=== PATIENT | male | born 1960 | race Caucasian/White ===

== ENCOUNTER 2018-09-13 12:50 | Emergency (ER) | payer OTHER ==
[2018-09-13 13:02] VITALS: BP 128/82; PULSE 81; RESP 18; TEMP 98.8; O2SAT 95
[2018-09-13] MEDS ORDERED: Sodium Chloride 0.9% 1,000 ML IV ONE (13:14)
[2018-09-13 13:46] LABS: BASO # 0.1 K/uL (0.0-0.2); BASO % 0.7 % (0.0-2.0); EOS # 0.3 K/uL (0.0-0.7); EOS % 2.6 % (0.0-4.0); HEMOGLOBIN 16.2 g/dL (12.0-18.0); LYMPH # 2.2 K/uL (1.0-4.3); LYMPH % 19.8 % (20.0-40.0); MEAN CELL VOLUME 82.5 fL (80.0-94.0); MEAN CORPUSCULAR HEMOGLOBIN 28.4 pg (27.0-31.0); MEAN CORPUSCULAR HGB CONC 34.4 g/dL (33.0-37.0); MEAN PLATELET VOLUME 7.2 fL (7.2-11.7); MONO % 9.2 % (0.0-10.0); NEUT # 7.6 K/uL (1.8-7.0); NEUT % 67.7 % (50.0-75.0); NRBC % 0.1 % (0.0-2.0); RBC 5.7 Mil/uL (4.40-5.90); RED CELL DISTRIBUTION WIDTH 12.9 % (11.5-14.5); WHITE BLOOD COUNT 11.2 K/uL (4.8-10.8)
[2018-09-13 13:58] LABS: URINE BILIRUBIN NEGATIVE (NEGATIVE); URINE BLOOD NEGATIVE (NEGATIVE); URINE CLARITY Clear (Clear); URINE COLOR Yellow (YELLOW); URINE GLUCOSE (UA) NORMAL (Normal); URINE LEUKOCYTE ESTERASE NEG Leu/uL (Negative); URINE PROTEIN NEGATIVE (NEGATIVE); URINE UROBILINOGEN NORMAL mg/dL (0.2-1.0)
[2018-09-13 14:01] LABS: ALB/GLOB RATIO 1.4 (1.0-2.1); ALBUMIN 4.3 g/dL (3.5-5.0); ALT/SGPT 30 U/L (21-72); AST/SGOT 19 U/L (17-59); BLOOD UREA NITROGEN 14 mg/dL (9-20); CALCIUM 10.1 mg/dl (8.6-10.4); GFR NON-AFRICAN AMERICAN > 60; LIPASE 109 U/L (23-300)
--- NOTE | 2018-09-13 14:11 | RAD ---
Abdomen four views HISTORY: Abdominal pain. Comparison: None available. FINDINGS: Mild venous congestion. Mild patchy increased markings at the left lung base. Tortuous aorta. Top normal heart size. Degenerative changes in the spine. Scoliotic curvature of the lumbar spine. Moderate fecal retention in the colon. No evidence of gross bowel obstruction. Impression: Moderate fecal retention in the colon. If pain persists, consider correlation with CT scan.
--- NOTE | 2018-09-13 14:26 | C.PDOC ---
History Of Present Illness 58 year old male presents to the ED complaining of periumbilical discomfort for 4 days. Denies any constipation, back pain, chest pain, fever, chills, nausea, vomiting, diarrhea, or any other associated complaints. States he has been taking unknown [place] remedies for 3 days with no relief. Son at bedside states the medication is like Tylenol. Denies any weight gain or loss. Time Seen by Provider: 09/13/18 13:07 Chief Complaint (Nursing): Abdominal Pain History Per: Patient History/Exam Limitations: no limitations Onset/Duration Of Symptoms: Days Current Symptoms Are (Timing): Still Present Past Medical History Reviewed: Historical Data, Nursing Documentation, Vital Signs Vital Signs: Last Vital Signs Temp 98.8 F 09/13/18 13:01 Pulse 81 09/13/18 13:01 Resp 18 09/13/18 13:01 BP 128/82 09/13/18 13:01 Pulse Ox 95 09/13/18 13:01 - Medical History PMH: No Chronic Diseases Surgical History: No Surg Hx Family History: States: No Known Family Hx - Social History Hx Alcohol Use: No Hx Substance Use: No Review Of Systems Except As Marked, All Systems Reviewed And Found Negative. Constitutional: Negative for: Fever, Chills, Weight loss Cardiovascular: Negative for: Chest Pain Respiratory: Negative for: Cough, Shortness of Breath Gastrointestinal: Positive for: Abdominal Pain (periumbilical discomfort). Negative for: Nausea, Vomiting, Diarrhea, Constipation Genitourinary: Negative for: Dysuria, Frequency, Hematuria Musculoskeletal: Negative for: Back Pain Physical Exam - Physical Exam Appears: Non-toxic, No Acute Distress, Other (Obese [place] male ) Skin: Warm, Dry, No Rash Head: Normacephalic Eye(s): bilateral: Normal Inspection Nose: Normal Oral Mucosa: Moist Neck: Supple Chest: Symmetrical Cardiovascular: Rhythm Regular Respiratory: Normal Breath Sounds, No Rales, No Rhonchi, No Wheezing Gastrointestinal/Abdominal: Bowel Sounds (Active, normal ), Soft, No Tenderness, Other (Dullness to percussion throughtout except tympanic to percussion in epigastric region. Negative Jeffries's, Negative Mcburney's, obese ) Neurological/Psych: Oriented x3, Normal Speech Gait: Steady ED Course And Treatment - Laboratory Results Result Diagrams: 09/13/18 13:41 09/13/18 13:41 Lab Results: Total Bilirubin 0.6 mg/dL (0.2-1.3) 09/13/18 13:41 AST 19 U/L (17-59) 09/13/18 13:41 ALT 30 U/L (21-72) 09/13/18 13:41 Alkaline Phosphatase 93 U/L (38-126) 09/13/18 13:41 Total Protein 7.4 g/dL (6.3-8.3) 09/13/18 13:41 Albumin 4.3 g/dL (3.5-5.0) 09/13/18 13:41 Globulin 3.1 gm/dL (2.2-3.9) 09/13/18 13:41 Albumin/Globulin Ratio 1.4 (1.0-2.1) 09/13/18 13:41 Lipase 109 U/L (23-300) 09/13/18 13:41 Urine Color Yellow (YELLOW) 09/13/18 13:41 Urine Clarity Clear (Clear) 09/13/18 13:41 Urine pH 6.0 (5.0-8.0) 09/13/18 13:41 Ur Specific [place] 1.012 (1.003-1.030) 09/13/18 13:41 Urine Protein Negative mg/dL (NEGATIVE) 09/13/18 13:41 Urine Glucose (UA) Normal mg/dL (Normal) 09/13/18 13:41 Urine Ketones Negative mg/dL (NEGATIVE) 09/13/18 13:41 Urine Blood Negative (NEGATIVE) 09/13/18 13:41 Urine Nitrate Negative (NEGATIVE) 09/13/18 13:41 Urine Bilirubin Negative (NEGATIVE) 09/13/18 13:41 Urine Urobilinogen Normal mg/dL (0.2-1.0) 09/13/18 13:41 Ur Leukocyte Esterase Neg Silas/uL (Negative) 09/13/18 13:41 Urine RBC (Auto) < 1 /hpf (0-3) 09/13/18 13:41 O2 Sat by Pulse Oximetry: 95 (RA) Pulse Ox Interpretation: Normal Medical Decision Making Medical Decision Making: Plan - Toradol 30mg IVP - Magnesium Citrate 300ml PO - IV fluids periumbilical pain without diarrhea for 4-5 days mild leukocytosis that is not L shifted, with Lymphocyte predominance suggestive of mesenteric adenitis Benign exam abd films +FOS improved with NSAIDS empiric NSAIDS and laxative and opt f/u PRN in 4-7 days Disposition Doctor Will See Patient In The: Office Counseled Patient/Family Regarding: Studies Performed, Diagnosis - Disposition Referrals: Prosper Trinidad MD [Staff Provider] - Disposition: HOME/ ROUTINE Disposition Time: 14:27 Condition: GOOD Additional Instructions: constipation: drink laxative now re-evaluate your abd discomfort after 2-3 bowel movements diet and exercise changes Mesenteric Adenitis: Advil/Motrin 400-600 mg every 6 hours as needed for belly discomfort AFTER the laxative therapy Outpatient f/u with Dr. Trinidad as needed in 4-7 days return to ED if symptoms significantly change or worsten. Instructions: Constipation, Adult (DC), Mesenteric Lymphadenitis (DC) Forms: [facility] (Belgian) - Clinical Impression Clinical Impression: Abdominal discomfort - Scribe Statement The provider has reviewed the documentation as recorded by the Aundreaibvictoria Gorman All medical record entries made by the Aundreaibvictoria were at my direction and personally dictated by me. I have reviewed the chart and agree that the record accurately reflects my personal performance of the history, physical exam, medical decision making, and the department course for this patient. I have also personally directed, reviewed, and agree with the discharge instructions and disposition.
[2018-09-13] MEDS ORDERED: Magnesium Citrate Oral SOL (300 ml) PO ONE (14:31)
[2018-09-13] MEDS ORDERED: Magnesium Citrate Oral SOL (300 ml) ONE (14:38)
== END 2018-09-13 14:52 | disposition home or self-care (01) ==
LOC: C.ER 12:50
DX: R10.9 Unspecified abdominal pain (principal)
CPT/HCPCS: 74022; 80053; 81001; 83690; 85025; 96361; 96374; 99284; J1885; J7030